=== PATIENT | male | born 1955 | race Caucasian/White ===

== ENCOUNTER → 2017-05-29 13:00 | Outpatient (CLI) | payer OTHER | END | disposition home or self-care (01) | LOC: D.US 13:00 | DX: I73.9 Peripheral vascular disease, unspecified (principal) ==

== ENCOUNTER 2019-09-21 22:41 | Inpatient (IN) | payer OTHER ==
[~2019-09-21] VITALS: Ht 172.7 cm; Wt 63.6 kg
--- NOTE | ~2019-09-21 | EC ---
PATIENT:BLOSSOM COLLINS DATE OF SERVICE: 09/22/19 SEX: M MEDICAL RECORD: [id number] DATE OF : [birth year] LOCATION:[facility] AGE OF PATIENT: 64 ADMISSION DATE: 09/22/19 REFERRING PHYSICIAN: INTERPRETING PHYSICIAN: ORIANA QUINTANILLA MD ECHOCARDIOGRAM REPORT ECHO CHARGES 4 ECHO COMPLETE Date: 09/23/19 CLINICAL DIAGNOSIS: STROKE ECHOCARDIOGRAPHIC MEASUREMENTS (adult normal given) AC root (d.<3.7cm) 3.0 cm LV Septum d (<1.2 cm> 0.7 cm Valve Excursion 1.4 cm LV Septum (systole) 1.3 cm Left Atria (s.<4.0cm> 3.0 cm LVPW d(<1.2cm) 0.8 cm RV (d.<2.3cm) 2.3 cm LVPW (sytole) 1.1 cm LV diastole(<5.6CM) 4.6 cm MV E-F(>70mm/sec) cm LV systole 2.9 cm LVOT Diameter 1.8 cm MV exc.(>10mm) cm Est.ejection fraction (50-75%) % DOPPLER: LVIT cm/sec A 61 cm/sec E 59 cm/sec LA cm/sec RVSP 20.0 mmHg LVOT 96 cm/sec AOP1/2T m/s Asc. Ao 137 cm/sec RVOT 46 cm/sec RA cm/sec PA 67 cm/sec AV Gradient Peak 7.5 mmHg AV Mean 4.1 mmHg AV Area 2.3 cm MV Gradient Peak 1.8 mmHg MV Mean 1.2 mmHg MV Area cm COMMENTS: Guest Relations Coordinator: Jaison [facility] Cable Mock Up Assembler: Maria Del Carmen Quintanilla TAPE# PACS Pericardial Effusion N DATE OF SERVICE: PROCEDURE: Transthoracic echocardiogram. FINDINGS: 1. The left ventricle is normal size with mild left ventricular hypertrophy, evidence of diastolic dysfunction. 2. Left atrium appears to be normal size, shape, structure, and function. 3. The aortic valve is normal. 4. The mitral valve appears to be normal. ECHOCARDIOGRAM REPORT [id number] BLOSSOM COLLINS 5. The tricuspid valve has trace tricuspid regurgitation. The RVSP is normal. 6. The right ventricle is normal. 7. The right atrium is normal. 8. Pulmonic valve is normal. TRANSINT:[id number] Voice Confirmation ID: [id number] DOCUMENT ID: [id number] ORIANA QUINTANILLA MD CC: [id number] DICTATION DATE: 09/24/19 0743 SOLDERING MACHINE FEEDER: 09/24/19 1018 DIS IN 09/23/19 [facility] [address] [id number]
[2019-09-21 22:52] LABS: BASOPHILS 1.2 % (0-2); EOSINOPHILS 4.2 % (0-7); HEMOGLOBIN 14.4 g/dL (13.5-17.5); IMMATURE GRANULOCYTES 0.4 % (0-5); LYMPHOCYTES 40.8 % (15-50); MCH 34.4 pg (26.0-34.0); MCHC 34.3 g/dL (31.0-37.0); MCV 100.5 fL (80.0-100.0); MEAN PLATELET VOLUME 9.2 fL (7.4-10.4); MONOCYTES 7.7 % (2-11); NEUTROPHILS 45.7 % (40-80); PLATELET COUNT 311 10x3/uL (130-400); RBC 4.18 10x6/uL (4.20-6.10); RDW 14.6 % (11.5-14.5); WBC 9.1 10x3/uL (4.8-10.8)
[2019-09-21 23:00] VITALS: BP 144/66
[2019-09-21 23:07] LABS: APTT 25.7 SECONDS (22.8-39.4); INR 0.97 (0.85-1.17); PROTIME 12.8 SECONDS (11.6-15.0)
[2019-09-21 23:15] VITALS: BP 122/63
[2019-09-21 23:17] LABS: CALC OSMOLALITY 270 mosm/kg (275-300); CALCIUM 9.4 mg/dL (8.5-10.1); CARBON DIOXIDE 26.9 mmol/L (21.0-32.0); CHLORIDE - SERUM 101 mmol/L (98-107); GLUCOSE 81 mg/dL (74-106); POTASSIUM - SERUM 3.4 mmol/L (3.5-5.1); SODIUM 137 mmol/L (136-145); UREA NITROGEN 7 mg/dL (7-18); eGFR NON AFRICAN AMERICAN 80 mL/min (90-120)
--- NOTE | 2019-09-21 23:20 | NUR ---
[facility] CALLED. [facility] STROKE SCALE IS 5.
[2019-09-21 23:23] LABS: ALBUMIN 3.8 g/dL (3.4-5.0); ALKALINE PHOSPHATASE 92 U/L (30-120); ALT (SGPT) 22 U/L (10-68); BILIRUBIN - TOTAL 0.27 mg/dL (0.2-1.3); CKMB 1.9 U/L (0.0-3.6); CREATINE KINASE 102 UL (21-232); MAGNESIUM - SERUM 1.9 mg/dL (1.8-2.4); PROTEIN - SERUM 7.3 g/dL (6.4-8.2); THYROID STIMULATING HORMONE 1.58 uIU/mL (0.36-3.74)
[2019-09-21 23:25] LABS: TROPONIN-I < 0.017 ng/mL (0.000-0.060)
--- NOTE | 2019-09-21 23:30 | NUR ---
TPA BOLUS INFUSED OVER 1 MINUTE OF 6.5MG. INFUSION OF 58.1MG OVER 1 HOUR BEGAN AT 2333.
--- NOTE | 2019-09-21 23:50 | NUR ---
PT TO CTA.
[2019-09-22] VITALS (22 sets, daily range): BP systolic 100–163; BP diastolic 48–85; Ht 172.7 cm; Wt 63.6 kg
--- NOTE | 2019-09-22 00:09 | NUR ---
BACK FROM CTA- RECONNECTED TO ALL MONITORS.
--- NOTE | 2019-09-22 00:40 | NUR ---
PT USED URINAL. SPOKE TO PATIENT. PATIENT WOULD LIKE TO STAY HERE. DR. ZAMORANO STATES THAT PT WOULD BE TO UNSTABLE TO TRANSFER TO [place] SO WILL ADMIT HERE.
--- NOTE | 2019-09-22 02:00 | NUR ---
RESTING QUIETLY WITH EYES CLOSED. RESPIRATIONS EVEN AND UNLAB. V/S STABLE. WILL MONITOR.
--- NOTE | 2019-09-22 04:00 | NUR ---
PT CON'T TO REST QUIETLY. NO DISTRES. V/S WNL. WILL CON'T TO MONITOR.
--- NOTE | 2019-09-22 06:30 | NUR ---
PT ALERT. ALL DEFECITS HAVE NOW RESOLVED. V/S STABLE. VOIDED WITHOUT DIFFICULTY. PT REQUESTING WATER- IS NPO BUT JUST WANTS TO TRY A SIP SINCE ALL HIS DEFECITS HAVE RESOLVED. PT DRANK SIP OF WATER WITH ZERO DIFFICULTY.
--- NOTE | 2019-09-22 07:22 | NUR ---
ASSUMED CARE OF PT. PT IS STABLE A&OX4. HE CAN MOVE ALL OF HIS EXTREMITIES WELL. SPEECH IS CLEAR. PT DENIES ANY PAIN/DISCOMFORT.
--- NOTE | 2019-09-22 09:00 | NUR ---
CONT TO RESTIN BED WITHOUT C/O. NO CHANGE IN STATUS/DENIES C/O
--- NOTE | 2019-09-22 10:13 | NUR ---
REPORT GIVEN TO FRANCESCO HOLGUIN @ [id number].
--- NOTE | 2019-09-22 10:41 | NUR ---
VOIDED 300 ML CLEAR YELLOW URINE
--- NOTE | 2019-09-22 12:02 | NUR ---
TO MRI VIA WC WITH ROCKET ASSEMBLY OPERATOR
--- NOTE | 2019-09-22 12:25 | NUR ---
RTND TO ER #T2, RESTING IN BED, NO C/O. VSS. NO CHANGE IN NEURO STATUS
--- NOTE | 2019-09-22 13:30 | NUR ---
DR ANDREI SUMNRE FOR MRI RESULTS AND PT REQUESTING DIET
--- NOTE | 2019-09-22 14:30 | NUR ---
EDY, RN REPORTS DR FORBES ORDERED SPEECH THERAPY AND TO LET SOFTWARE ENGINEER MOBILE KNOW THAT IF SPEECH THERAPY CLEARS PT OK FOR DIET. MESSI, SOFTWARE ENGINEER MOBILE NOTIFIED
--- NOTE | 2019-09-22 15:00 | NUR ---
TRANSPORTED TO ROOM #2305, CONDITION STABLE
--- NOTE | 2019-09-22 15:46 | NUR ---
1530 PT ARRIVED IN THE [facility] WHEELCHAIR FROM THE ED.. WITHOUT NEURO DEFICITS NOTED.. SPEECH PATH IN AND SWALLOW EVAL DONE.. PT PASSED WITHOUT DIFFICULTY AND DIET ORDERED BY SPEECH.. 1545 ADMISSION ASSESMENT COMPLETE SEE FLOW SHEET FOR FINDINGS.. 1550 DR CALDERON IN TO SEE PATIENT..
--- NOTE | 2019-09-22 17:55 | NUR ---
1700 DIET SERVED TO PATIENT.. FEEDING SELF 1730 WITHOUT CHANGES.. OR C/O
--- NOTE | 2019-09-22 18:46 | NUR ---
1800 1000% DIET EATEN.. 1845 NEURO CHECK DONE.. PT IS W/O C/O AT THIS TIME
--- NOTE | 2019-09-22 19:38 | NUR ---
patient report received. patient sleeping. no acute distress. will continue to montior
--- NOTE | 2019-09-22 22:58 | NUR ---
PATIENT ALERT AND ORIENTED. STATED HE DOES FEEL TIRED AND WANTS TO TRY AND WALK.
[2019-09-23] VITALS (13 sets, daily range): BP systolic 105–143; BP diastolic 65–90
--- NOTE | 2019-09-23 04:35 | NUR ---
patient requested fluids. given per swallow eval done.
--- NOTE | 2019-09-23 07:00 | NUR ---
REC'D REPORT AND RESUMED CARE, AAO, VSS, DENIES PAIN, ASSESSMENT COMPLETED PER FLOWSHEET, AWAITING BREAKFAST, COFFEE TO BEDSIDE, NO OTHER NEEDS AT THIS TIME
--- NOTE | 2019-09-23 08:50 | HP ---
PATIENT: BLOSSOM COLLINS MEDICAL RECORD: [id number] ACCOUNT: [id number] LOCATION:[facility] D.2305 : 59 ADMISSION DATE: 09/22/19 PCP: NEELIMA DOCTOR HISTORY AND PHYSICAL EXAMINATION DATE OF ADMISSION: 09/22/2019 CHIEF COMPLAINT: Right-sided weakness. HISTORY OF PRESENT ILLNESS: This is a 64-year-old white male who has basically no underlying medical problems who was brought in via EMS after he had a sudden onset of right arm and leg weakness and trouble with speech approximately 2150 on 09/21/2019. He had just gotten through eating dinner, gotten up and went to a chair in the living room. He had some right facial droop, some slurred speech and weakness on the right side. His girlfriend called the patient's son who came over, evaluated him, and called 911. The patient was brought to the ER, Benoit VALDOVINOSMeño was called and given a history. The patient was given tPA as he met the guidelines for this. In the ER, his CBC and CMP were essentially normal. Thyroid was normal. CT of the head showed nothing acute. Chest x-ray showed nothing acute. EKG showed sinus rhythm. He is admitted for an acute stroke. PAST MEDICAL HISTORY: Essentially unremarkable. He is seen in the [place] [facility] here, but it is unknown as to when the last time he was there. PAST SURGICAL HISTORY: He has had wisdom teeth taken out. CURRENT PRESCRIPTION MEDICATIONS: None. ALLERGIES: PENICILLIN. HABITS: He smokes at least a pack of cigarettes a day. He admits to 2-3 beers a day. Denies illicit drug use. SOCIAL HISTORY: Self-employed. FAMILY HISTORY: Father at 54 of throat cancer. Mother in her upper 70s of "natural causes." REVIEW OF SYSTEMS: GENERAL: No major weight changes. HEENT: No particular sinus or allergy problems. RESPIRATORY: No diagnosis of emphysema, asthma or pneumonia. CARDIAC: No history of chest pain. No palpitations. GASTROINTESTINAL: No diarrhea, constipation or heartburn. GENITOURINARY: No significant problems there. MUSCULOSKELETAL: Occasional back discomfort. NEUROLOGIC: No migraines or seizures. PSYCHIATRIC: Denies depression or melancholia. PHYSICAL EXAMINATION: VITAL SIGNS: Temperature 97.7, pulse 73, respirations 16, blood pressure 141/74, O2 sat 96%. The patient had been given tPA approximately 7 hours before my exam. He really does not have too many concerns or problems right now. He is still in the ER as no beds are available yet in the hospital. HISTORY AND PHYSICAL [id number] DENNIS,BLOSSOM HEENT: Grossly within normal limits. NECK: Supple. No JVD or bruit. HEART: Regular rate and rhythm without murmur. LUNGS: Clear. ABDOMEN: Soft. EXTREMITIES: No edema. NEUROLOGIC: His trim master operator is 5/5 bilaterally. No focal motor or sensory deficits noted right now. LABORATORY AND DIAGNOSTIC DATA: CBC with a white count of 9100, hemoglobin 14.4, MCV is 100.5. Basic metabolic panel and liver functions are all normal. INR 0.97, troponin less than 0.017. TSH normal at 1.5. CT of the head shows no acute process. Chest x-ray shows no acute process. There is healed left ninth rib fracture noted. EKG shows sinus rhythm. ASSESSMENT: Left middle cerebral artery stroke. PLAN: Further workup. Dr. Martínez is consulted. Other tests or procedures as warranted. TRANSINT:[id number] Voice Confirmation ID: [id number] DOCUMENT ID: [id number] ROLAND FORBES MD at 0850 CC: [id number] DICTATION DATE: 09/22/19 1431 INFORMATION SYSTEMS AUDITOR: 09/22/19 1506 ADM IN [id number] [place] [address]
[2019-09-23 11:21] LABS: CHOL - HDL RATIO 3.5 ratio (2.3-4.9); LDL-HDL RATIO 2.2 ratio (1.5-3.5)
[2019-09-23] MEDS ORDERED: PLAVIX75 MG PO (12:56)
--- NOTE | 2019-09-23 14:14 | NUR ---
PATIENT IS STABLE AND VSS. PATIENT DENIES ANY NEEDS OR PAIN. ORDERS RECIEVED FOR DC. SHAINA. HAND IV DCD WITHOUT DIFFICULTY WITH ENTIRE CATHETER INTACTAND PRESSURE DRSG APPLIED. DISCHARGE INSTRUCTIONS GIVEN VERBALLY AND WRITTEN. PATIENT VERBALIZED UNDERSTANDING AND SIGNED INSTRUCTIONS. PATIENT TO FRONT DOOR VIA WC ACCOMPANIED BY HOSPITAL STAFF TO PRIVATE VEHICLE DRIVEN BY PATIENTS SON.
== END 2019-09-23 13:20 | disposition home or self-care (01) | DRG 62 ==
LOC: D.ER 22:41 → D.ICU 09-22 13:42
PROVIDERS: Emergency Medicine; ADMIT Family Medicine; ATTEND Family Medicine
DX: I63.9 Cerebral infarction, unspecified (principal); G81.91 Hemiplegia, unspecified affecting right dominant side; R47.1 Dysarthria and anarthria; F17.200 Nicotine dependence, unspecified, uncomplicated